=== PATIENT | male | born 1945 | race Caucasian/White ===

== ENCOUNTER → 2024-09-15 10:11 | Outpatient (REF) | payer MEDICARE, OTHER, SELFPAY | LOC: RAD 10:11 | PROVIDERS: ATTENDING PHYSICIAN Surgery Vascular Surgery; FAMILY PHYSICIAN Family Medicine | DX: I72.3 Aneurysm of iliac artery (principal) | CPT/HCPCS: 76770 ==

== ENCOUNTER 2024-11-23 12:31 | Emergency (ER) | payer MEDICARE, OTHER, SELFPAY ==
[2024-11-23 12:39] VITALS: BP 136/67
--- NOTE | 2024-11-23 15:19 | ED.MUSCINJ ---
HPI-Injury
General
Chief Complaint: Musculo-Skeletal Complaint
Source: patient
Exam Limitations: none
Time Seen by Provider: 11/23/24 15:05
History of Present Illness-Injury
Initial Injury comments:
79-year-old male presents with 2 days worth of worsening redness pain and swelling to the anterior aspect of the right knee. He had 1 episode of similar pain about a week or 2 ago after kneeling that went away. He does have a history of gout but
this was in his toes in the past. He denies fever. Denies chills or sweats. 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 He notes bearing weight and motion is limited secondary to his pain. He tried Tylenol without relief.
No other this time
Past History
Past History
ED Past Medical History: HTN and Other (dvt/pe, addisons disease , Diverticulitis,)
ED Past Surgical History: Negative Cardiac or Cholecystectomy
Social History
Tobacco: Non-smoker
Alcohol: Daily
Drug: None
Personal:
Living: with family
Employment: Employed
Phy Exam
Physical Exam
Physical Exam:
General: Well-appearing male no acute respiratory distress HEENT: Normocephalic atraumatic musculoskeletal exam: Right knee without effusion however he has soft tissue swelling anteriorly over the prepatellar bursa. He is able to flex to about 40
degrees and has full extension. Posterior joint line is nontender. Knee is stable.
Extremities: No cyanosis or edema
Skin erythema without induration or fluctuance noted over the anterior aspect of the right knee
MDM/Problems Addressed
Differential Diagnosis Includes:
Right knee pain with erythema. Consider cellulitis versus bursitis. No effusion on exam. Do not suspect septic arthritis. Not systemically ill. Concern for possible dorsalis bursitis however he is nontoxic with stable vital signs. Had long
discussion with patient and significant other. Will opt to treat with Keflex for coverage of infectious bursitis. He is on Eliquis and cannot do NSAIDs. He takes steroids daily for his [place]'s. Will recommend Tylenol knee immobilizer with
close follow-up with family doctor in the next 1 to 2 days. At this point, no indication for admission
*Critical Care Note
Total Time (30-74mins, 75-104mins- exclusive of procedures): Not Applicable
ED Attending Note
-
Portions of this chart may have been created with voice recognition software.� Occasional wrong word or��sound alike� substitutions may have occurred due to the inherent limitations of voice recognition software.
Discharge Plan
Departure
Patient Disposition: Home (Routine Discharge)
Date of Disposition: 11/23/24
Time of Disposition: 15:22
Patient with high blood pressure during this ER visit?: No
Discharge Problem:
Bursitis
Instructions: Bursitis ED
Prescriptions:
New
cephalexin 500 mg tablet
500 mg PO QID Qty: 28 0RF
No Action
simvastatin 20 MG tablet
20 mg PO QPM
warfarin [Jantoven] 5 MG tablet
7.5 mg PO MOTUWETHFRSA
metoprolol succinate 25 MG tablet extended release 24 hr
25 mg PO DAILY
hydrocortisone 10 MG tablet
10 mg PO TID
fludrocortisone 0.1 MG tablet
0.1 mg PO DAILY
multivitamin 1 EACH tablet
1 ea PO DAILY
warfarin 5 MG tablet
5 mg PO PATRICIA
amlodipine-benazepril 1 EACH capsule
1 ea PO DAILY
glucosamine patricia 2KCl-chondroit [Glucosamine Sulf-Chondroitin] 1 EACH capsule
1 cap PO DAILY
calcium carb-D3-mag ox-zinc ox [Dc Mag Zinc Plus D3] 1 EACH tablet
1 ea PO DAILY
Patient Comments:
1200mg slow release
Turmeric
1,000 mg PO DAILY
aspirin 81 MG tablet,delayed release (DR/EC)
81 mg PO DAILY 999 Days 0RF
Rx Instructions:
continue indefinitely
Referrals:
Shreya Li DO [Family Provider] -
Activity Restrictions/Additional Instructions:
Use brace for support when ambulating. Take antibiotics as directed. Please return here for increasing redness swelling pain fever or other concerning finding. Follow-up with your family doctor closely otherwise
Interventions
Interventions:
*Risk Screen - Suicide Last Done: 11/23/24 14:33
*General Assessment Last Done: 11/23/24 14:33
*Neglect/Abuse Screening Last Done: 11/23/24 14:33
ED- Fall Risk Assessment Last Done: 11/23/24 14:33
*ED COVID-19 Vaccine History Last Done: 11/23/24 14:33
ED-Musculoskeletal Assessment Last Done: 11/23/24 14:33
Discharge Date and Time
Print Language: FAROESE
[2024-11-23] MEDS: KEFLEX 500 MG PO (15:28)
[2024-11-23 15:29] VITALS: BP 145/85
== END 2024-11-23 15:41 | disposition home or self-care (01) ==
LOC: EMR 12:31
PROVIDERS: EMERGENCY PHYSICIAN Emergency Medicine; FAMILY PHYSICIAN Family Medicine
DX: M71.50 Other bursitis, not elsewhere classified, unspecified site (principal); M25.561 Pain in right knee; E27.1 Primary adrenocortical insufficiency; I10 Essential (primary) hypertension; Z86.718 Personal history of other venous thrombosis and embolism; Z90.49 Acquired absence of other specified parts of digestive tract
CPT/HCPCS: 99282

== ENCOUNTER 2025-03-28 23:28 | Emergency (ER) | payer MEDICARE, OTHER, SELFPAY ==
[2025-03-28 23:31] VITALS: BP 142/84
[2025-03-28 23:35] VITALS: BP 142/84
[2025-03-28 23:52] LABS: % Basophils 0.3 % (0-2); % Eosinophils 1.2 % (0-6); % Immature Granulocytes 0.1 % (0-0.5); % Lymphocytes 31.1 % (20.5-51.1); % Monocytes 7.4 % (1.7-9.3); % Neutrophils 59.9 % (42.2-75.2); Absolute Eosinophils 0.1 10^3/uL (0-0.7); Absolute Lymphocytes 2.8 10^3/uL (1.2-3.4); Absolute Monocytes 0.7 10^3/uL (0.1-0.6); Absolute Neutrophils 5.3 10^3/uL (1.4-6.5); Hemoglobin 12.8 g/dL (13.0-18.0); Mean Corp Hgb Conc. 35.6 g/dL (33.0-37.0); Mean Corpuscular Hgb 33.3 pg (27.0-31.0); Mean Corpuscular Volume 93.8 fL (80.0-94.0); Mean Platelet Volume 10.3 fL (7.4-10.4); Nucleated Red Blood Cells % 0 % (-); Platelet Count 162 10^3/uL (130-400); Red Blood Cell Count 3.84 10^6/uL (4.70-6.10); White Blood Cell Count 8.9 10^3/uL (4.8-10.8)
[2025-03-29] VITALS: BP 115/81
[2025-03-29 00:03] LABS: INR 1.05
[2025-03-29 00:05] LABS: ALT (SGPT) 21 U/L (0-50); AST (SGOT) 28 U/L (17-59); Albumin 3.7 g/dl (3.5-5.0); Alkaline Phosphatase 45 U/L (38-126); Blood Urea Nitrogen 23 mg/dl (9-20); Carbon Dioxide 24 mmol/L (22-30); Chloride 109 mmol/L (98-107); Estimated Creatinine Clearance 47 ml/min; Glucose 119 mg/dl (70-99); Potassium 4.1 mmol/L (3.5-5.1); Sodium 142 mmol/L (135-145); Total Protein 6.2 g/dl (6.3-8.2); eGFR 55.53
--- NOTE | 2025-03-29 00:21 | ED.GENMED ---
Addendum entered and electronically signed by Anna Torrez PA-C 04/05/25 09:05:
Skin tears repaired with Dermabond
Right forearm:
Proximal--5 cm by 2 cm
Distal-- 3 cm by 4 cm
Original Note:
History of Present Illness
General
Chief Complaint: Skin Surface Trauma
Source: patient
Exam Limitations: none
Time Seen by Provider: 03/29/25 00:08
Nursing documentation reviewed up to this point in time: agreed with
History of Present Illness
History of Present Illness:
This is a 79-year-old male with past medical history of Alzheimer's dementia, DVT, hypertension, hyperlipidemia, on warfarin, presents to the emergency department today with concerns of right arm pain and fall. Patient reports that yesterday
evening, he was playing tennis when he fell. Patient's reports that he has very progressive dementia and does not have a great memory of the events. reports that he was playing tennis with friends and he drove home from tennis and she
found him to have multiple cuts on his arm and a scrape on his leg. Patient is not sure if he hit his head but he does note some neck pain. He has been walking normally since the fall. He denies any headaches, lightheadedness, dizziness.
reports that when she was dressing his wound, he was looking at his wounds and felt a bit dizzy and she took his blood pressure and noted him to be slightly hypotensive. She laid him down he started to feel better. was concerned that he was
losing a lot of blood. Patient not have any syncopal episodes. He does note mild arm pain over the cut on his arm but denies headaches, chest pain, abdominal pain, any pain in his lower extremities.
Past History
Past History
ED Past Medical History: HTN and Other (dvt/pe, addisons disease , Diverticulitis,)
ED Past Surgical History: Negative Cardiac or Cholecystectomy
Social History
Tobacco: Non-smoker
Alcohol: Daily
Drug: None
Personal:
Living: with family
Employment: Employed
Review of Systems
Review of Systems
All Other Systems: ROS reviewed and negative except as documented in HPI and ROS
Phy Exam
Physical Exam
Physical Exam:
General: Patient is well appearing and in no acute distress; non-toxic
Skin: Scattered skin tears and abrasion noted to the right posterior forearm, no lacerations
Head: Normocephalic, atraumatic
Eyes: Sclera non-icteric. EOMs intact.
Neck: No midline spinal tenderness
Cardiac: Regular rate and rhythm, no murmurs, no tenderness palpation of the external chest wall
Peripheral Vascular: No lower extremity swelling or edema
Pulm: Normal respiratory effort, no wheezes, rales, rhonchi
Abdomen: No abdominal tenderness to palpation, no signs of trauma
Musculoskeletal: No bony tenderness palpation of the bilateral upper extremities, no pain with flexion extension of the right elbow or flexion extension of the right wrist, brisk cap refill
Neuro: CN II-XII intact, no focal neurologic deficits.
Psychiatric: Appropriate mood and affect.
Course
Orders/Labs/Results
Orders:
Orders
03/28/25 23:41
Complete Blood Count/With Diff Urgent
Comprehensive Metabolic Panel Urgent
PT/INR [Prothrombin Time] Urgent
03/29/25 00:35
Electrocardiogram (*1) Urgent
Reason for Study: Other
Other Reason for Exam: pre-syncope
CT Head W/o Iv Contrast Urgent
Comment:
Reason For Exam: fall, transient headache
EKG- Treatment ONCE
Lidocaine/Epinephrine/Tetracai [Let Topical Anesthetic Gel] 3 ml TOPICAL NOW STA
03/29/25 00:36
CR Forearm - Right 2 View Urgent
Comment:
Reason For Exam: right arm pain
03/29/25 00:42
CT Cervical Spine W/o Iv Contr Urgent
Comment:
Reason For Exam: neck pain
03/29/25 02:19
Tetanus/Diphth/Acelpertussis [Adacel] 0.5 ml IM .ONCE ONE
Abnormal Lab Results
03/28/25
23:41
RBC 3.84 L 10^6/uL
(4.70-6.10)
Hgb 12.8 L g/dL
(13.0-18.0)
Hct 36.0 L %
(39.0-52.0)
MCH 33.3 H pg
(27.0-31.0)
Absolute Monos (auto) 0.7 H 10^3/uL
(0.1-0.6)
Chloride 109 H mmol/L
(98-107)
BUN 23 H mg/dl
(9-20)
Glucose 119 H mg/dl
(70-99)
Total Protein 6.2 L g/dl
(6.3-8.2)
03/28/25 23:41
03/28/25 23:41
Vital Signs
Initial and Last Documented VS:
Initial Vital Signs
Temp Pulse Resp BP Pulse Ox
98.7 F 94 20 142/84 95
03/28/25 23:31 03/28/25 23:31 03/28/25 23:31 03/28/25 23:31 03/28/25 23:31
Last Documented Vital Signs
Temp Pulse Resp BP Pulse Ox
98.7 F 82 17 106/69 95
03/28/25 23:31 03/29/25 02:16 03/29/25 02:16 03/29/25 02:00 03/29/25 00:12
MDM/Problems Addressed
Differential Diagnosis Includes:
Differentials include skin tear, arm contusion, abrasion, subdural hematoma, epidural hematoma, forearm fracture, vasovagal presyncope
MDM/Problems Addressed:
79-year-old male presents emergency department today with concerns of skin tear and some arm pain following a fall. This occurred while playing tennis. He got up on his own and has been walking normally since the fall. He has Alzheimer's and
somewhat limited historian. His reports that he started to become a bit lightheaded and was noted to have low blood pressure as she was dressing his wounds and applying bandages. This is likely consistent with vasovagal presyncope, as
patient's blood pressure was low at the time, he had prodromal syncopal symptoms, and his EKG shows sinus rhythm with first degree AV block similar to previous EKGs. His arm pain resolved with without intervention. I did apply some let gel to the
wounds and repaired the skin tears with Dermabond, Steri-Strips, and did apply dressing. His CAT scan is negative for any acute hemorrhage herniation or hydrocephalus in his cervical spine is negative for any acute fractures. Patient demonstrated
steady gait. Patient stable for discharge
*Critical Care Note
Total Time (30-74mins, 75-104mins- exclusive of procedures): Not Applicable
ED Attending Note
-
Portions of this chart may have been created with voice recognition software.� Occasional wrong word or��sound alike� substitutions may have occurred due to the inherent limitations of voice recognition software.
Discharge Plan
Departure
Patient Disposition: Home (Routine Discharge)
Date of Disposition: 03/29/25
Time of Disposition: 02:11
Patient with high blood pressure during this ER visit?: Yes
Condition: Good
Discharge Problem:
Fall, Skin tear
Instructions: Wound Care ([place]), [facility], BLOOD PRESSURE
Prescriptions:
No Action
simvastatin 20 MG tablet
20 mg PO QPM
warfarin [Jantoven] 5 MG tablet
7.5 mg PO MOTUWETHFRSA
metoprolol succinate 25 MG tablet extended release 24 hr
25 mg PO DAILY
hydrocortisone 10 MG tablet
10 mg PO TID
fludrocortisone 0.1 MG tablet
0.1 mg PO DAILY
multivitamin 1 EACH tablet
1 ea PO DAILY
warfarin 5 MG tablet
5 mg PO PATRICIA
amlodipine-benazepril 1 EACH capsule
1 ea PO DAILY
glucosamine patricia 2KCl-chondroit [Glucosamine Sulf-Chondroitin] 1 EACH capsule
1 cap PO DAILY
calcium carb-D3-mag ox-zinc ox [Dc Mag Zinc Plus D3] 1 EACH tablet
1 ea PO DAILY
Patient Comments:
1200mg slow release
Turmeric
1,000 mg PO DAILY
aspirin 81 MG tablet,delayed release (DR/EC)
81 mg PO DAILY 999 Days 0RF
Rx Instructions:
continue indefinitely
cephalexin 500 mg tablet
500 mg PO QID Qty: 28 0RF
Referrals:
UNKNOWN - PT DOES,NOT KNOW [Family Provider] -
Activity Restrictions/Additional Instructions:
Your CBC and CMP blood work is unremarkable. Your CT scan of your head and cervical spine shows no acute bleeding or fracture of the cervical spine.
Please keep the dressing in place for 24 hours. After 24 hours, you can remove the dressing and replace it once daily. The glue will peel off on its own as the wound heals.
PLEASE RETURN EMERGENCY DEPARTMENT SHOULD YOU DEVELOP AN ACUTE WORSENING OF YOUR SYMPTOMS, INABILITY TO RANGE YOUR ARM, HEADACHES, FEVERS OR CHILLS, CHEST PAIN, SHORTNESS OF BREATH, LIGHTHEADEDNESS, DIZZINESS, OR ANY OTHER SIGNS OR SYMPTOMS
WORRISOME TO YOU
Interventions
Interventions:
*Risk Screen - Suicide Last Done: 03/28/25 23:31
*General Assessment Last Done: 03/28/25 23:31
*Neglect/Abuse Screening Last Done: 03/28/25 23:31
*ED- Fall Risk Assessment Last Done: 03/28/25 23:31
*ED COVID-19 Vaccine History Last Done: 03/28/25 23:31
*Nursing Disposition Last Done: 03/29/25 02:29
ED-Skin Assessment Last Done: 03/28/25 23:45
Discharge Date and Time
Discharge Date/Time: 03/29/25 02:50
Print Language: TURKMEN
[2025-03-29] MEDS: LET TOPICAL ANESTHETIC GEL 3 ML TOPICAL (00:51)
[2025-03-29 01:12] VITALS: BP 112/68
[2025-03-29 02:00] VITALS: BP 106/69
[2025-03-29] MEDS: ADACEL 0.5 ML IM (02:21)
== END 2025-03-29 02:50 | disposition home or self-care (01) ==
LOC: EMR 23:28
PROVIDERS: Student in an Organized Health Care Education/Training Program; EMERGENCY PHYSICIAN Student in an Organized Health Care Education/Training Program
DX: S51.811A Laceration without foreign body of right forearm, initial encounter (principal); W19.XXXA Unspecified fall, initial encounter; I10 Essential (primary) hypertension; E78.5 Hyperlipidemia, unspecified; Z23 Encounter for immunization; F02.80 Dementia in other diseases classified elsewhere, unspecified severity, without behavioral disturbance, psychotic disturbance, mood disturbance, and anxiety; G30.9 Alzheimer's disease, unspecified
CPT/HCPCS: 99285; 12004; 90471; 70450; 72125; 73090; 80053; 85025; 85610; 90715; 93005

== ENCOUNTER → 2025-05-11 14:57 | Outpatient (REF) | payer MEDICARE, OTHER, SELFPAY | LOC: HWRCS 14:57 | PROVIDERS: ATTENDING PHYSICIAN Nurse Practitioner; FAMILY PHYSICIAN Family Medicine | DX: I35.0 Nonrheumatic aortic (valve) stenosis (principal); I10 Essential (primary) hypertension | CPT/HCPCS: 93306 ==